=== PATIENT | female | born 1990 | race Caucasian/White ===

== ENCOUNTER → 2020-05-31 15:24 | Outpatient (REF) | payer OTHER, SELFPAY | LOC: ANHLAB 15:24 | PROVIDERS: Visit Provider Nurse Practitioner | DX: D49.2 Neoplasm of unspecified behavior of bone, soft tissue, and skin (principal) | CPT/HCPCS: 88305 ==

== ENCOUNTER → 2020-07-26 14:42 | Outpatient (REF) | payer OTHER, SELFPAY | LOC: ANHLAB 14:42 | PROVIDERS: Visit Provider Nurse Practitioner | DX: L90.5 Scar conditions and fibrosis of skin (principal) | CPT/HCPCS: 88305 ==